=== PATIENT | female | born 1950 | race Two or more races ===

== ENCOUNTER 2021-12-03 23:38 | Inpatient (IN) | payer MEDICARE, BC ==
[~2021-12-03] VITALS: Ht 166.4 cm; Wt 65.8 kg
[2021-12-03] MEDS ORDERED: MORPHINE SULFATE INJ 4 MG/ML DISP.SYRIN ONE (23:56)
[2021-12-03] MEDS ORDERED: ONDANSETRON HCL/PF 4 MG/2 ML VIAL ONE (23:56)
[2021-12-04] MEDS ORDERED: IV NS 0.9% 1,000 ML BAG IV ONE
[2021-12-04] MEDS ORDERED: ONDANSETRON HCL/PF 4 MG/2 ML VIAL IVP ONE
--- NOTE | 2021-12-04 | NUR ---
PATIENT [id number] FROM [facility]E C/O ABD PAIN STARTED TONIGHT. PATIENT IS A/O X 4 RR EVEN AND UNLABORED, NO SOB NOTED. PATIENT TAKEN TO ER BED 02. PATIENT CONNECTED TO CARDIAC MONITORS AND POX.
--- NOTE | 2021-12-04 00:10 | NUR ---
SINK MAKER AT BEDSIDE.
[2021-12-04 00:24] LABS: BASOPHILS # (AUTO) 0.1 K/uL (0.0-0.2); BASOPHILS % (AUTO) 0.4 % (0.0-2.0); EOSINOPHILS % (AUTO) 0.1 % (0.0-6.0); HEMATOCRIT 43 % (33-45); HEMOGLOBIN 14.8 g/dL (11.5-14.8); LYMPHOCYTES # (AUTO) 1.2 K/uL (0.8-4.8); LYMPHOCYTES % (AUTO) 5.2 % (20.0-44.0); MEAN CORPUSCULAR HGB CONC 34 g/dl (31.0-36.0); MEAN CORPUSCULAR VOLUME 98 fL (82-100); MONOCYTES % (AUTO) 4.4 % (2.0-12.0); NEUTROPHILS # (AUTO) 20.7 K/uL (1.8-8.9); NEUTROPHILS % (AUTO) 89.9 % (43.0-81.0); PLATELET COUNT (AUTO) 343 K/uL (150-450); RED BLOOD CELL COUNT(AUTO) 4.43 MIL/uL (4.0-5.2)
--- NOTE | 2021-12-04 00:26 | NUR ---
IV CANNULA G20 INSERTED ON LEFT FA. IVFLUIDS ATTACHED.
[2021-12-04 00:49] LABS: ALANINE AMINOTRANSFERASE 33 U/L (12-78); ALBUMIN 2.2 g/dL (3.4-5.0); ALKALINE PHOSPHATASE 107 U/L (46-116); ASPARTATE AMINOTRANSFERASE 27 U/L (15-37); BILIRUBIN,DIRECT 0.2 mg/dL (0.0-0.2); BILIRUBIN,TOTAL 0.7 mg/dL (0.2-1.0); CALCIUM, SERUM 9.4 mg/dL (8.5-10.1); CARBON DIOXIDE 28 mmol/L (21-32); CHLORIDE 98 mmol/L (98-107); CREATININE 1.1 mg/dL (0.6-1.3); GLUCOSE 166 mg/dL (74-106); LIPASE 51 U/L (73-393); POTASSIUM 4.3 mmol/L (3.5-5.1); SODIUM SERUM 131 mmol/L (136-145); TOTAL PROTEIN, SERUM 6.3 g/dL (6.4-8.2); UREA NITROGEN, BLOOD 22 mg/dL (7-18)
[2021-12-04] MEDS ORDERED: IOHEXOL-300 100 ML VIAL IV ONE (00:59)
[2021-12-04] MEDS ORDERED: IV NS 0.9% 250 ML IV ONE (00:59)
--- NOTE | 2021-12-04 02:00 | NUR ---
URINE COLLECTED AND SENT TO LAB
[2021-12-04 03:24] LABS: BILIRUBIN,URINE NEGATIVE (NEGATIVE); COLOR,URINE YELLOW (YELLOW); LEUKOCYTE ESTERASE ,URINE NEGATIVE (NEGATIVE); NITRITE, URINE NEGATIVE (NEGATIVE); PH,URINE 6.5 (5.0-8.0); PROTEIN,URINE >=300 mg/dl (NEGATIVE); UGLUCOSE NEGATIVE (NEGATIVE); UROBILINOGEN,URINE 0.2 EU/dL (0.2)
--- NOTE | 2021-12-04 03:25 | NUR ---
PAGED DR BREWER, GEN SURG
[2021-12-04 03:29] LABS: BACTERIA,URINE Few /HPF (None Seen); WBC,URINE 0-2 /HPF (0-3)
[2021-12-04 03:30] LABS: SQUAMOUS EPITHELIAL CELL,UR Few /HPF (None Seen)
[2021-12-04] MEDS ORDERED: MORPHINE SULFATE INJ 2 MG/ML DISP.SYRIN IV ONE ×2 (03:30)
[2021-12-04] MEDS ORDERED: ONDANSETRON HCL/PF 4 MG/2 ML VIAL IV ONE (03:30)
--- NOTE | 2021-12-04 03:37 | NUR ---
DR NEAL ON THE PHONE WITH DR BREWER
[2021-12-04] MEDS ORDERED: MORPHINE SULFATE INJ 4 MG/ML DISP.SYRIN ONE (03:40)
[2021-12-04] MEDS ORDERED: ONDANSETRON HCL/PF 4 MG/2 ML VIAL ONE (03:40)
[2021-12-04] MEDS ORDERED: CIPROFLOXACIN IV RTU 200 ML IV ONE (03:45)
[2021-12-04] MEDS ORDERED: ASPI-992 PO (03:48)
[2021-12-04] MEDS ORDERED: GABA-532 PO (03:48)
[2021-12-04] MEDS ORDERED: ESCI10TA PO (03:48)
[2021-12-04] MEDS ORDERED: CARV3.122 PO (03:48)
[2021-12-04] MEDS ORDERED: AMLO1CAP6 PO (03:48)
[2021-12-04] MEDS ORDERED: METH5TAB6 PO (03:48)
[2021-12-04] MEDS ORDERED: DORZ10DR13 LEFTEYE (03:48)
[2021-12-04] MEDS ORDERED: BUPR150T10 PO (03:48)
[2021-12-04] MEDS ORDERED: ERGO50CA PO (03:48)
[2021-12-04] MEDS ORDERED: ROSU20TA32 PO (03:48)
--- NOTE | 2021-12-04 03:49 | NUR ---
DR NEAL ON THE PHONE WITH ANDRES WATTS NP
--- NOTE | 2021-12-04 03:58 | NUR ---
NGT INSERTED ON LEFT NOSTRIL. AT THE LEVEL OF 57cm. PATENCY CHECKED.
--- NOTE | 2021-12-04 03:59 | NUR ---
COVID SWAB SENT TO LAB
[2021-12-04] MEDS ORDERED: ACETAMINOPHEN 650 MG/SUPP.RECT RC PRN (04:00)
[2021-12-04] MEDS ORDERED: Z GUARD REMEDY 4 OZ OINT TP PRN (04:00)
[2021-12-04] MEDS ORDERED: FLAGYL/NS RTU 500 MG/100 ML PIGGYBACK IV ONE (04:00)
[2021-12-04] MEDS ORDERED: ONDANSETRON HCL/PF 4 MG/2 ML VIAL IVP PRN (04:00)
[2021-12-04] MEDS ORDERED: CIPROFLOXACIN IV RTU 400 MG in PREMIX 1 EA IV SCH (04:00)
--- NOTE | 2021-12-04 04:36 | NUR ---
XRAY DONE AT BEDSIDE TO VERIFY NGT PLACEMENT
[2021-12-04] MEDS ORDERED: METRONIDAZOLE 500MG/ NS 100ML 100 ML IV ONE (06:01)
--- NOTE | 2021-12-04 07:07 | NUR ---
RECIEVED [phone]
--- NOTE | 2021-12-04 07:35 | NUR ---
PT REPORT GIVEN TO ADI WALTON.
[2021-12-04] MEDS: PANTOPRAZOLE 40 MG VIAL IV SCH (09:53)
[2021-12-04 13:43] LABS: BASOPHILS # (AUTO) 0.1 K/uL (0.0-0.2); BASOPHILS % (AUTO) 0.2 % (0.0-2.0); HEMATOCRIT 38 % (33-45); HEMOGLOBIN 12.7 g/dL (11.5-14.8); LYMPHOCYTES # (AUTO) 1.9 K/uL (0.8-4.8); LYMPHOCYTES % (AUTO) 8.3 % (20.0-44.0); MEAN CORPUSCULAR HGB CONC 34 g/dl (31.0-36.0); MEAN CORPUSCULAR VOLUME 99 fL (82-100); MONOCYTES # (AUTO) 1.5 K/uL (0.1-1.30); MONOCYTES % (AUTO) 6.5 % (2.0-12.0); PLATELET COUNT (AUTO) 333 K/uL (150-450); RED BLOOD CELL COUNT(AUTO) 3.82 MIL/uL (4.0-5.2); WHITE BLOOD COUNT (AUTO) 22.3 K/uL (4.3-11.0)
[2021-12-04] MEDS: MORPHINE SULFATE INJ 2 MG/ML DISP.SYRIN IV PRN ×3 (15:32→21:30)
[2021-12-04 16:00] VITALS: BP 110/74
[2021-12-04] MEDS: METRONIDAZOLE 500MG/ NS 100ML 500 MG in PREMIX 1 EA IV SCH ×2 (16:09→21:18)
[2021-12-04] MEDS: IV D5 LR 1,000 ML IV PRN (16:25)
[2021-12-04 16:55] LABS: BAND % (MANUAL) 2 % (0.0-5.0); LYMPHOCYTES % (MANUAL) 10 % (16-48); MONOCYTES % (MANUAL) 6 % (0-11.0)
[2021-12-04 16:56] LABS: NEUTROPHILS % (MANUAL) 82 (42-76)
[2021-12-04] MEDS: GABAPENTIN 100 MG CAPSULE PO SCH (17:00)
--- NOTE | 2021-12-04 19:00 | NUR ---
RN CLOSING NOTE PATIENT LAYING ON BED, WITH NGT IN PLACE TO LOW INTERMITTENT SUCTION,DX- SMALLL BOWEL OBSTRUCTION. PATIENTS PAIN RATE 2/10 LAST MED GIVEN 4 MG OF MORPHINE IV PUSH AROUND 1400. NO S/S OF DISTRESS PATIENT IS CALM AND COOPERATIVE. CALL LIGHT IN REACH, BED AT LOWEST POSITION, WILL ENDORSE THE PATIENT TO THE CHUCKER NURSE FOR STEPHANIE.
--- NOTE | 2021-12-04 19:30 | NUR ---
MS RN NOTES RECEIVED LAYING ON BED,ON LEFT SIDE POSITION,WITH NGT IN PLACE TO LOW INTERMITTENT SUCTION,DX- SMALLL BOWEL OBSTRUCTION,NPO ORDERED.C/O ABDOMINAL PAIN 3/10 ON PAIN SCALE,COMMENTED WHEN SHE MOVES,PAIN IS MORE THAN 3/10,NOTED.ADVISED IF PAIN IS NON TOLERABLE TO ALERT THE NURSE RIGHT AWAY FOR PAIN MANAGEMENT.PRESENT IVF D5LR AT 75ML/HR RATE INFUSING WELL ON RIGHT HAND SALINE LOCK VIA IV PUMP.CALL LIGHT IN REACH,NEEDS ANTICIPATED.
[2021-12-04 20:00] VITALS: BP 103/48
[2021-12-04] MEDS: CARVEDILOL 3.125 MG TABLET PO SCH (21:00)
[2021-12-04] MEDS: ATORVASTATIN 40 MG TABLET PO SCH (21:21)
--- NOTE | 2021-12-04 21:30 | NUR ---
MS RN NOTES PAIN MANAGEMENT C/O ABDOMINAL PAIN 8/10 ON PAIN SCALE,MORPHINE 4MG IV GIVEN ORDERED.
[2021-12-04] MEDS: CIPROFLOXACIN IV RTU 400 MG in PREMIX 1 EA IV SCH (22:10)
[2021-12-05] MEDS: MORPHINE SULFATE INJ 2 MG/ML DISP.SYRIN IV PRN (04:01)
--- NOTE | 2021-12-05 04:01 | NUR ---
MS RN NOTES PAIN MANAGEMENT AWAKE,AMBULATE TO THE BATHROOM. C/O ABDOMINAL PAIN 8/10 ON PAIN SCALE,MORPHINE 4MG IV GIVEN ORDERED.
[2021-12-05] MEDS: METRONIDAZOLE 500MG/ NS 100ML 500 MG in PREMIX 1 EA IV SCH ×3 (05:15→20:32)
[2021-12-05 06:25] LABS: BASOPHILS % (AUTO) 0.1 % (0.0-2.0); HEMATOCRIT 33 % (33-45); HEMOGLOBIN 11.3 g/dL (11.5-14.8); LYMPHOCYTES # (AUTO) 1.5 K/uL (0.8-4.8); LYMPHOCYTES % (AUTO) 8.9 % (20.0-44.0); MEAN CORPUSCULAR HGB CONC 34 g/dl (31.0-36.0); MEAN CORPUSCULAR VOLUME 99 fL (82-100); MONOCYTES % (AUTO) 6.1 % (2.0-12.0); NEUTROPHILS # (AUTO) 14.2 K/uL (1.8-8.9); NEUTROPHILS % (AUTO) 84.9 % (43.0-81.0); PLATELET COUNT (AUTO) 254 K/uL (150-450); RED BLOOD CELL COUNT(AUTO) 3.33 MIL/uL (4.0-5.2); WHITE BLOOD COUNT (AUTO) 16.7 K/uL (4.3-11.0)
[2021-12-05 06:41] LABS: CALCIUM, SERUM 8.1 mg/dL (8.5-10.1); CARBON DIOXIDE 29 mmol/L (21-32); CHLORIDE 100 mmol/L (98-107); GLUCOSE 140 mg/dL (74-106); MAGNESIUM 1.9 mg/dL (1.8-2.4); PHOSPHORUS 2.4 mg/dL (2.5-4.9); POTASSIUM 3.8 mmol/L (3.5-5.1); SODIUM SERUM 131 mmol/L (136-145); UREA NITROGEN, BLOOD 16 mg/dL (7-18)
--- NOTE | 2021-12-05 06:42 | NUR ---
MS RN NOTES SLEEP WELL WITH PAIN MANAGEMENT.KEPT NPO ORDERED.ALL DUE MEDS ADMINISTERED SCHEDULED.AMBULATE WITH STEADY GAIT.NGT IN PLACE TO LOW INTERMITTENT SUCTION,ZERO OUTPUT NOTED.IN NO ACUTE DISTRESS.
--- NOTE | 2021-12-05 07:20 | NUR ---
RN OPENING NOTE RECEIVED PATIENT LAYING IN BED. PATIENT IS ALERT AND ORIENTED X4. ABLE TO MAKE NEEDS KNOWN. PATIENT HAS NGT IN LOW INTERMMITTENT SUCTION. CURRENTLY NPO DIAGNOSIS. PATIENT HAS IV ON RIGHT HAND. IV PATENT.PATIENT HAS IV FLUID RUNNING CURRENTLY AT 75 ML/HR. NO SIGNS OF PAIN OR DISCOMFORT. PATIENT IS AMBULATORY. PATIENT IS ON ROOM AIR TOLERATING WELL. ALL SAFETY MEASURES IN PLACE. CALL LIGHT WITH REACH. BED LOCKED AT LOWEST POSITION. BEDSIDE TABLE NEXT TO PATIENT.
[2021-12-05 07:50] LABS: CHOLESTEROL 148 mg/dL (<200); HDL CHOLESTEROL 94 mg/dL (40-60); LDL 42 mg/dL (0-99); TRIGLYCERIDES 97 mg/dL (30-150)
[2021-12-05 08:00] VITALS: BP 99/50
[2021-12-05] MEDS: CARVEDILOL 3.125 MG TABLET PO SCH ×2 (09:00→21:42)
[2021-12-05] MEDS: METHIMAZOLE (5MG) 5 MG TABLET PO SCH (09:00)
[2021-12-05] MEDS: GABAPENTIN 100 MG CAPSULE PO SCH ×2 (09:00→17:00)
[2021-12-05] MEDS: AMLODIPINE BESYLATE 5 MG TABLET PO SCH (09:00)
[2021-12-05] MEDS: ASPIRIN 325 MG TABLET PO SCH (09:00)
[2021-12-05] MEDS: CIPROFLOXACIN IV RTU 400 MG in PREMIX 1 EA IV SCH ×2 (09:02→21:41)
[2021-12-05] MEDS: PANTOPRAZOLE 40 MG VIAL IV SCH (09:10)
[2021-12-05] MEDS: TIMOLOL MAL/DORZOLAM HCL OPHTH 10 ML BOTTLE LEFTEYE SCH (09:10)
[2021-12-05] MEDS: IV D5 LR 1,000 ML IV PRN ×2 (09:17→18:53)
[2021-12-05] MEDS ORDERED: BISACODYL SUPP (10 MG) 10 MG/SUPP.RECT SUPP.RECT RC PRN (10:30)
[2021-12-05] MEDS: POTASSIUM PHOSPHATE MM 7.5 MMOL in IV NS 0.9% 100 ML IV SCH ×2 (11:29→14:50)
[2021-12-05] MEDS ORDERED: IV NS 0.9% 500 ML IV ONE (12:00)
--- NOTE | 2021-12-05 12:30 | NUR ---
PATIENT COMPLAINS OF IV SITE HURTING ON RIGHT HAND.
--- NOTE | 2021-12-05 12:40 | NUR ---
STARTED AN IV STILL COMPLAINING OF PAIN.
--- NOTE | 2021-12-05 13:00 | NUR ---
NURSING CLINICAL LAB SPECIALIST CAME AND STARTED AN IV ON LEFT HAND. IV PATENT AND FLUSHING WELL. PATIENT COMPLAINS OF NO PAIN OR DISCOMFORT
[2021-12-05] MEDS: ACETAMINOPHEN 325 MG TABLET PO PRN (14:19)
[2021-12-05 16:00] VITALS: BP 167/61
[2021-12-05] MEDS: BUPROPION XL 150 MG TAB.ER.24 PO SCH (17:26)
[2021-12-05] MEDS: MORPHINE SULFATE INJ 4 MG/ML DISP.SYRIN IV PRN ×2 (17:35→23:02)
--- NOTE | 2021-12-05 18:00 | NUR ---
PATIENT COMPLAINING OF PAIN. ADMINSTERED MORPHINE. MORPHINE HELPED RELIEVE PAIN
--- NOTE | 2021-12-05 19:30 | NUR ---
RN OPENING NOTE PATIENT IN BED, SLEEPING, EASILY ROUSED WITH VERBAL AND TOUCH STIMULI. PATIENT IS ON RA, TOLERATING WELL, NO SOB NOTED. BREATHING EVEN AND UNLABORED. NO N/V OR PAIN REPORTED AT THIS TIME. PATIENT HAS A L HAND IV ACCESS WITH D5 LR AT 100 ML/HR ONGOING. SAFETY MEASURES IN PLACE: BED LOCKED AND IN LOWEST POSITION, CALL LIGHT WITHIN REACH, SIDE RAILS UP. WILL MONITOR PATIENT CLOSELY.
--- NOTE | 2021-12-05 19:58 | NUR ---
RN CLOSING NOTE PATIENT IS ALERT AND ORIENTED X4. ABLE TO MAKE NEEDS KNOWN. ALL NEEDS MET. PATIENT IS ON CLEAR LIQUID DIET CURRENTLY. PATIENT HAS IV FLUIDS RUNNING AT 100 ML/HR. IV PATENT AND FLUSHING WELL. NO SIGNS OF PAIN OR DISCOMFORT. PATIENT IS ON ROOM AIR TOLERATING WELL.ALL SAFETY MEASURES IN PLACE. CALL LIGHT WITH REACH. BED LOCKED AT LOWEST POSITION. BEDSIDE TABLE NEXT TO PATIENT.
[2021-12-05 20:00] VITALS: BP 121/71
[2021-12-05] MEDS: ATORVASTATIN 40 MG TABLET PO SCH (21:42)
--- NOTE | 2021-12-05 23:02 | NUR ---
RN NOTE PATIENT COMPLAINING OF PAIN ON THE ABDOMEN, MORPHINE GIVEN, WILL REASSESS PAIN AT A LATER TIME.
[2021-12-06] MEDS: METRONIDAZOLE 500MG/ NS 100ML 500 MG in PREMIX 1 EA IV SCH ×3 (04:54→20:27)
[2021-12-06] MEDS: IV D5 LR 1,000 ML IV PRN (04:54)
[2021-12-06 06:12] LABS: BASOPHILS % (AUTO) 0.2 % (0.0-2.0); EOSINOPHILS % (AUTO) 0.3 % (0.0-6.0); HEMATOCRIT 30 % (33-45); LYMPHOCYTES # (AUTO) 2.1 K/uL (0.8-4.8); LYMPHOCYTES % (AUTO) 19.1 % (20.0-44.0); MEAN CORPUSCULAR HGB CONC 34 g/dl (31.0-36.0); MEAN CORPUSCULAR VOLUME 99 fL (82-100); MONOCYTES # (AUTO) 0.8 K/uL (0.1-1.30); MONOCYTES % (AUTO) 6.8 % (2.0-12.0); NEUTROPHILS # (AUTO) 8.1 K/uL (1.8-8.9); NEUTROPHILS % (AUTO) 73.6 % (43.0-81.0); PLATELET COUNT (AUTO) 218 K/uL (150-450)
[2021-12-06 06:34] LABS: CALCIUM, SERUM 8.1 mg/dL (8.5-10.1); CREATININE 0.9 mg/dL (0.6-1.3); MAGNESIUM 1.9 mg/dL (1.8-2.4); PHOSPHORUS 2.3 mg/dL (2.5-4.9); POTASSIUM 3.4 mmol/L (3.5-5.1)
--- NOTE | 2021-12-06 06:40 | NUR ---
RN CLOSING NOTE PATIENT IN BED, SLEEPING, EASILY ROUSED WITH VERBAL AND TOUCH STIMULI. PATIENT IS ON RA, TOLERATING WELL, NO SOB NOTED. BREATHING EVEN AND UNLABORED. NO N/V OR PAIN REPORTED DURING THE SHIFT. PATIENT HAS A L HAND 22 G WITH D5 LR AT 100 ML/HR ONGOING. PAIN MANAGED WITH MORPHINE IV. SAFETY MEASURES IN PLACE: BED LOCKED AND IN LOWEST POSITION, CALL LIGHT WITHIN REACH, SIDE RAILS UP. ALL NEEDS MET AND ATTENDED. ALL ORDERS CARRIED OUT. WILL ENDORSE TO DAY SHIFT NURSE FOR STEPHANIE.
--- NOTE | 2021-12-06 08:03 | NUR ---
RN OPENING NOTE- PATIENT IN BED, SLEEPING, EASILY AWAKENED, PATIENT IS ON RA, TOLERATING WELL, NO SOB NOTED. BREATHING EVEN AND NON-LABORED. NO N/V OR PAIN REPORTED. PATIENT HAS A L HAND 22 G WITH D5 LR AT 100 ML/HR ONGOING.. SAFETY MEASURES IN PLACE: BED LOCKED AND IN LOWEST POSITION, CALL LIGHT WITHIN REACH, SIDE RAILS UP. ALL NEEDS MET AND ATTENDED. MONITOR / ASSIST
[2021-12-06] MEDS: ESCITALOPRAM OXALATE (10 MG) 10 MG TABLET PO SCH (08:29)
[2021-12-06] MEDS: ASPIRIN 325 MG TABLET PO SCH (08:29)
[2021-12-06] MEDS: GABAPENTIN 100 MG CAPSULE PO SCH ×2 (08:29→17:12)
[2021-12-06] MEDS: BUPROPION XL 150 MG TAB.ER.24 PO SCH ×2 (08:29→17:12)
[2021-12-06] MEDS: METHIMAZOLE (5MG) 5 MG TABLET PO SCH (08:29)
[2021-12-06] MEDS: CARVEDILOL 3.125 MG TABLET PO SCH ×2 (08:31→21:20)
[2021-12-06] MEDS: AMLODIPINE BESYLATE 5 MG TABLET PO SCH (08:31)
[2021-12-06] MEDS: CIPROFLOXACIN IV RTU 400 MG in PREMIX 1 EA IV SCH ×2 (08:32→21:20)
[2021-12-06] MEDS: PANTOPRAZOLE 40 MG VIAL IV SCH (08:33)
[2021-12-06] MEDS: TIMOLOL MAL/DORZOLAM HCL OPHTH 10 ML BOTTLE LEFTEYE SCH (08:33)
[2021-12-06] MEDS ORDERED: POTASSIUM CHLORIDE 20 MEQ POWDER PACKET PO SCH (10:00)
[2021-12-06] MEDS ORDERED: NEUTRA PHOS 1 POWD.PACKET PO ONE (10:00)
--- NOTE | 2021-12-06 10:14 | NUR ---
RN NOTE- PT WITH NO BM FOR SECOND DAY. DULCOLAX SUPPOS. INSERTED. BSC PROVIDED.
--- NOTE | 2021-12-06 18:55 | NUR ---
RN CLOSING NOTES PATIENT ALERT AND ORIENTED X4. D5 LR INFUSING TO LFA @ 75/HR DUE TO 24G IV. (ORDERED 100/HR). PT DENIES PAIN, PO INTAKE GOOD, LARGE BM TODAY. MONITOR ASSIST, SIDE RAILS UP X2, BED LOCKED, CALL LIGHT WITHIN REACH.
--- NOTE | 2021-12-06 19:25 | NUR ---
RN OPENING NOTE PATIENT IN BED, AWAKE, UPSET BECAUSE SHE DID NOT GET DINNER. INFORMED PATIENT THAT THE KITCHEN IS CLOSED, BUT I CAN GIVE HER APPLE JUICE AND JELL-OS. PATIENT WOULD LIKE TO FIND OUT HOW THAT HAPPENED. PATIENT IS ON RA, TOLERATING WELL, NO SOB NOTED. BREATHING EVEN AND UNLABORED. NO N/V OR PAIN REPORTED AT THIS TIME. PATIENT HAS A L FA 24 GIV ACCESS WITH D5 LR AT 75 ML/HR ONGOING. SAFETY MEASURES IN PLACE: BED LOCKED AND IN LOWEST POSITION, CALL LIGHT WITHIN REACH, SIDE RAILS UP. WILL MONITOR PATIENT CLOSELY.
[2021-12-06 21:03] VITALS: BP 116/65
[2021-12-06] MEDS: ATORVASTATIN 40 MG TABLET PO SCH (21:20)
[2021-12-06] MEDS: LORAZEPAM INJ 2 MG/ML VIAL IV PRN (21:32)
--- NOTE | 2021-12-06 21:38 | NUR ---
RN NOTE ATIVAN GIVEN PER PATIENT'S REQUEST TO HELP HER FEEL CALMER AND TO HELP HER FALL ASLEEP.
--- NOTE | 2021-12-07 00:45 | NUR ---
RN NOTE OBTAINED CONSENT FOR COLONOSCOPY, BLOOD TRANSFUSION, AND ANESTHESIA. PATIENT WOULD LIKE TO SPEAK TO MD BEFORE PROCEDURE. BLOOD TRANSFUSION REACTIONS PAMPHLET GIVEN TO THE PATIENT, COPY OF EDUCATION MATERIAL PLACED IN THE CHART. INFORMED PATIENT THAT SHE IS NOW NPO EXCEPT MEDICATIONS.
--- NOTE | 2021-12-07 04:19 | NUR ---
INSERTED NEW IV ACCESS ON THE R HAND G 24, PATENT AND INTACT, ANCHORED WELL. LFA IV ACCESS REMOVED.
[2021-12-07] MEDS: IV D5 LR 1,000 ML IV PRN (04:35)
[2021-12-07] MEDS: METRONIDAZOLE 500MG/ NS 100ML 500 MG in PREMIX 1 EA IV SCH ×3 (04:35→21:36)
[2021-12-07 06:00] LABS: BASOPHILS % (AUTO) 0.3 % (0.0-2.0); EOSINOPHILS % (AUTO) 0.5 % (0.0-6.0); HEMATOCRIT 31 % (33-45); HEMOGLOBIN 10.7 g/dL (11.5-14.8); LYMPHOCYTES % (AUTO) 25.2 % (20.0-44.0); MEAN CORPUSCULAR HGB CONC 35 g/dl (31.0-36.0); MEAN CORPUSCULAR VOLUME 97 fL (82-100); MONOCYTES # (AUTO) 0.6 K/uL (0.1-1.30); MONOCYTES % (AUTO) 7.4 % (2.0-12.0); NEUTROPHILS # (AUTO) 5.2 K/uL (1.8-8.9); NEUTROPHILS % (AUTO) 66.6 % (43.0-81.0); PLATELET COUNT (AUTO) 262 K/uL (150-450); RED BLOOD CELL COUNT(AUTO) 3.17 MIL/uL (4.0-5.2); WHITE BLOOD COUNT (AUTO) 7.9 K/uL (4.3-11.0)
[2021-12-07 06:38] LABS: CALCIUM, SERUM 8.4 mg/dL (8.5-10.1); CREATININE 0.9 mg/dL (0.6-1.3); MAGNESIUM 1.9 mg/dL (1.8-2.4); POTASSIUM 3.8 mmol/L (3.5-5.1)
--- NOTE | 2021-12-07 07:28 | NUR ---
RN CLOSING NOTE PATIENT IN BED, AWAKE, A/O X 4 ABLE TO MAKE NEEDS KNOWN. PATIENT IS ON RA, TOLERATING WELL, NO SOB NOTED. BREATHING EVEN AND UNLABORED. NO N/V OR PAIN REPORTED AT THIS TIME. PATIENT HAS A R HAND 24 G IV ACCESS WITH D5 LR AT 75 ML/HR ONGOING. PATIENT CURRENTLY NPO AT THIS TIME FOR POSS COLONOSCOPY TODAY. SAFETY MEASURES IN PLACE: BED LOCKED AND IN LOWEST POSITION, CALL LIGHT WITHIN REACH, SIDE RAILS UP. ALL NEEDS MET AND ATTENDED. ALL ORDERS CARRIED OUT. WILL ENDORSE TO DAY SHIFT NURSE FOR STEPHANIE.
--- NOTE | 2021-12-07 07:30 | NUR ---
RN OPENING NOTE PATIENT IS SLEEPING IN BED. EASILY AWAKENED, A&O X4, WANTS TO REST. DENIES PAIN. SIDE RAILS UP, BED LOCKED, CALL LIGHT IN REACH, WILL MONITOR AND ASSIST.
[2021-12-07 08:00] VITALS: BP 118/79
[2021-12-07] MEDS: METHIMAZOLE (5MG) 5 MG TABLET PO SCH (09:03)
[2021-12-07] MEDS: GABAPENTIN 100 MG CAPSULE PO SCH ×2 (09:03→17:11)
[2021-12-07] MEDS: PANTOPRAZOLE 40 MG VIAL IV SCH (09:03)
[2021-12-07] MEDS: ASPIRIN 325 MG TABLET PO SCH (09:03)
[2021-12-07] MEDS: ESCITALOPRAM OXALATE (10 MG) 10 MG TABLET PO SCH (09:04)
[2021-12-07] MEDS: CIPROFLOXACIN IV RTU 400 MG in PREMIX 1 EA IV SCH ×2 (09:10→20:21)
[2021-12-07] MEDS: BUPROPION XL 150 MG TAB.ER.24 PO SCH ×2 (09:11→17:11)
[2021-12-07] MEDS: TIMOLOL MAL/DORZOLAM HCL OPHTH 10 ML BOTTLE LEFTEYE SCH (09:39)
[2021-12-07] MEDS: CARVEDILOL 3.125 MG TABLET PO SCH ×2 (09:41→21:36)
[2021-12-07] MEDS: AMLODIPINE BESYLATE 5 MG TABLET PO SCH (09:42)
[2021-12-07] MEDS ORDERED: CT SWABBABLE VALVE TRANS SET 1 EA INFUS.SET MC ONE (12:20)
[2021-12-07] MEDS ORDERED: IOHEXOL-300 100 ML VIAL IV ONE (12:20)
[2021-12-07] MEDS ORDERED: IV NS 0.9% 250 ML IV ONE (12:20)
[2021-12-07] MEDS ORDERED: NA PHOS,M-B/NA PHOS,DI-BA 1 EA ENEMA RC PRN (12:30)
--- NOTE | 2021-12-07 12:40 | NUR ---
RN NOTE MD ORDERED 2 FLEETS ENEMAS STAT. ADMINISTERED WITH POSITIVE RESULTS.
[2021-12-07 16:17] VITALS: BP 107/70
--- NOTE | 2021-12-07 18:43 | NUR ---
RN CLOSING NOTE- PATIENT IN BED, AWAKE, A/O X 4 ABLE TO MAKE NEEDS KNOWN. PATIENT IS ON RA, TOLERATING WELL, NO SOB NOTED. BREATHING EVEN AND UNLABORED. NO N/V OR PAIN REPORTED AT THIS TIME. PATIENT HAS A R HAND 24 G IV ACCESS WITH D5 LR AT 75 ML/HR ONGOING. SOFT DIET AAT. . SAFETY MEASURES IN PLACE: BED LOCKED AND IN LOWEST POSITION, CALL LIGHT WITHIN REACH, SIDE RAILS UP. ALL NEEDS MET AND ATTENDED. DC PROB TOMORROW PER TAWNYA RODRIGUEZ
--- NOTE | 2021-12-07 19:08 | NUR ---
RN OPENING NOTE PATIENT AWAKE IN BED. A/OX4. NO S/S OF DISTRESS, BREATHING WITHOUT DIFFICULTY ON ROOM AIR. R-HAND #24 INTACT AND PATENT - PATIENT DECLINED HER D5LR, BUT IS EATING AND PRESENTS WITHOUT ISSUE. SAFETY MEASURES IN PLACE: BED LOCKED AND AT LOWEST POSITION, RAILS UP X2, CALL GRIFFIN WITHIN REACH. WILL CONTINUE TO MONITOR PATIENT.
[2021-12-07] MEDS: ACETAMINOPHEN 325 MG TABLET PO PRN (19:40)
[2021-12-07 20:00] VITALS: BP 117/66
[2021-12-07] MEDS: ATORVASTATIN 40 MG TABLET PO SCH (21:36)
[2021-12-07] MEDS: LORAZEPAM INJ 2 MG/ML VIAL IV PRN (21:37)
[2021-12-08] MEDS: METRONIDAZOLE 500MG/ NS 100ML 500 MG in PREMIX 1 EA IV SCH (05:27)
[2021-12-08 05:56] LABS: BASOPHILS # (AUTO) 0.1 K/uL (0.0-0.2); BASOPHILS % (AUTO) 1.1 % (0.0-2.0); EOSINOPHILS % (AUTO) 0.7 % (0.0-6.0); HEMATOCRIT 32 % (33-45); HEMOGLOBIN 11.1 g/dL (11.5-14.8); LYMPHOCYTES # (AUTO) 2.1 K/uL (0.8-4.8); LYMPHOCYTES % (AUTO) 28.8 % (20.0-44.0); MEAN CORPUSCULAR HGB CONC 35 g/dl (31.0-36.0); MEAN CORPUSCULAR VOLUME 96 fL (82-100); MONOCYTES # (AUTO) 0.7 K/uL (0.1-1.30); MONOCYTES % (AUTO) 9.6 % (2.0-12.0); NEUTROPHILS # (AUTO) 4.4 K/uL (1.8-8.9); NEUTROPHILS % (AUTO) 59.8 % (43.0-81.0); PLATELET COUNT (AUTO) 297 K/uL (150-450); RED BLOOD CELL COUNT(AUTO) 3.31 MIL/uL (4.0-5.2); WHITE BLOOD COUNT (AUTO) 7.4 K/uL (4.3-11.0)
[2021-12-08 06:38] LABS: CALCIUM, SERUM 8.3 mg/dL (8.5-10.1); CREATININE 0.9 mg/dL (0.6-1.3); MAGNESIUM 1.9 mg/dL (1.8-2.4); PHOSPHORUS 3.7 mg/dL (2.5-4.9); POTASSIUM 3.3 mmol/L (3.5-5.1)
--- NOTE | 2021-12-08 06:47 | NUR ---
RN CLOSING NOTE PATIENT ASLEEP IN BED. A/OX4. NO S/S OF DISTRESS, BREATHING WITHOUT DIFFICULTY ON ROOM AIR. R-HAND #24 INTACT AND PATENT W/ D5LR @100ML/HR. SAFETY MEASURES IN PLACE: BED LOCKED IN PLACE & AT LOWEST POSITION, RAILS UP X2, CALL GRIFFIN WITHIN REACH. WILL ENDORSE TO NEXT SHIFT FOR STEPHANIE.
--- NOTE | 2021-12-08 07:30 | NUR ---
RN MS NOTES PT IN BED, AWAKE, ALERT AND ORIENTED, DENIES PAIN, NOT IN DISTRESS, RESPIRATIONS NORMAL AND NON LABORED, EATING BREAKFAST, TOLERATING WELL, CALL LIGHT WITHIN REACH, IV FLUIDS INFUSING, NEEDS ATTENDED.
[2021-12-08 08:00] VITALS: BP 128/77
[2021-12-08] MEDS ORDERED: CIPROFLOXACIN HCL 500 MG TABLET PO SCH (09:00)
[2021-12-08] MEDS: TIMOLOL MAL/DORZOLAM HCL OPHTH 10 ML BOTTLE LEFTEYE SCH (09:08)
[2021-12-08] MEDS: METHIMAZOLE (5MG) 5 MG TABLET PO SCH (09:08)
[2021-12-08] MEDS: PANTOPRAZOLE 40 MG VIAL IV SCH (09:08)
[2021-12-08] MEDS: GABAPENTIN 100 MG CAPSULE PO SCH (09:09)
[2021-12-08] MEDS: ASPIRIN 325 MG TABLET PO SCH (09:09)
[2021-12-08] MEDS: CARVEDILOL 3.125 MG TABLET PO SCH (09:10)
[2021-12-08] MEDS: BUPROPION XL 150 MG TAB.ER.24 PO SCH (09:10)
[2021-12-08 09:11] VITALS: BP 128/77
[2021-12-08] MEDS: AMLODIPINE BESYLATE 5 MG TABLET PO SCH (09:11)
[2021-12-08] MEDS: ESCITALOPRAM OXALATE (10 MG) 10 MG TABLET PO SCH (09:11)
[2021-12-08] MEDS ORDERED: POTASSIUM CHLORIDE 20 MEQ TAB.PRT.SR PO ONE (11:00)
[2021-12-08] MEDS ORDERED: POLY17PO4 PO (11:06)
[2021-12-08] MEDS ORDERED: CIPR-262 PO (11:06)
[2021-12-08] MEDS ORDERED: METR500T PO (11:06)
[2021-12-08] MEDS ORDERED: METRONIDAZOLE 500 MG TABLET PO SCH (13:00)
--- NOTE | 2021-12-08 13:36 | NUR ---
RN MS NOTES PT AWAKE, ALERT AND ORIENTED, WALKING INSIDE HER ROOM, WITH STEADY GAIT, INDEPENDENT WITH ADL'S, SEEN BY DR. JACOBO, DISCHARGE AND MEDICATION INSTRUCTIONS PROVIDED TO PT, VERBALIZED UNDERSTANDING, BELONGINGS ACCOUNTED FOR, PT'S NEW PRESCRIPTION SENT ELECTRONICALLY BY MD TO PT'S PREFERRED PHARMACY, PT REFUSED WHEELCHAIR ASSISTANCE, ASSISTED TO HOSPITAL LOBBY, PICKED UP BY SON, LEFT VIA PRIVATE CAR IN STABLE CONDITION.
== END 2021-12-08 15:08 | disposition home or self-care (01) | DRG 389 ==
LOC: ER 23:40 → TRANSITION 12-04 04:12 → MED 12-04 07:38
PROVIDERS: ADMIT Nurse Practitioner Acute Care; ATTEND Nurse Practitioner Acute Care
PROC: 0DBN8ZX Excision of Sigmoid Colon, Via Natural or Artificial Opening Endoscopic, Diagnostic (ICD-10-PCS; principal; 2021-12-07)
DX: K56.699 Other intestinal obstruction unspecified as to partial versus complete obstruction (principal); E87.1 Hypo-osmolality and hyponatremia; K55.9 Vascular disorder of intestine, unspecified; K57.32 Diverticulitis of large intestine without perforation or abscess without bleeding; K63.3 Ulcer of intestine; I10 Essential (primary) hypertension; E05.00 Thyrotoxicosis with diffuse goiter without thyrotoxic crisis or storm; I25.10 Atherosclerotic heart disease of native coronary artery without angina pectoris; Z20.822 Contact with and (suspected) exposure to COVID-19; Z88.1 Allergy status to other antibiotic agents; Z88.5 Allergy status to narcotic agent; Z88.2 Allergy status to sulfonamides; Z91.09 Other allergy status, other than to drugs and biological substances; Z79.82 Long term (current) use of aspirin; Z79.899 Other long term (current) drug therapy; E78.5 Hyperlipidemia, unspecified; I25.2 Old myocardial infarction; Z95.5 Presence of coronary angioplasty implant and graft; F32.A Depression, unspecified; E83.39 Other disorders of phosphorus metabolism; E88.09 Other disorders of plasma-protein metabolism, not elsewhere classified; D63.8 Anemia in other chronic diseases classified elsewhere; E87.6 Hypokalemia; Z87.19 Personal history of other diseases of the digestive system; Z90.49 Acquired absence of other specified parts of digestive tract; Z98.51 Tubal ligation status
CPT/HCPCS: 36415; 45330; 71045-TC; 80048-TC; 80061-TC; 80076-TC; 81001; 83605-TC; 83690-TC; 83735-TC; 84100-TC; 85025-TC; 85610-TC; 85730-TC; 86850-TC; 87040-TC; 87081-TC; 88305-TC; A4216; A6403; C9113; G0378; J0744; J2060; J2270; J2405; J2704; J3490; J7030; J7040; J7050; J7060; Q9967